=== PATIENT | female | born 1960 | race Caucasian/White ===

== ENCOUNTER → 2017-10-24 | Outpatient (CLI) | payer OTHER ==
--- NOTE | 2017-10-24 15:39 | CPEKG ---
Heart Rate: 71 RR Interval: 845 P-R Interval: 188 QRSD Interval: 94 QT Interval: 384 QTC Interval: 418 P Roland: 44 QRS Roland: 61 T Wave Roland: 19 EKG Severity - NORMAL ECG - EKG Impression: SINUS RHYTHM Electronically Signed By: Lane Sadler 26-Oct-2017 07:00:51
== END ==
LOC: FCP 15:09
PROVIDERS: ATTEND Family Medicine
DX: Z00.01 Encounter for general adult medical examination with abnormal findings (principal)